=== PATIENT | female | born 1970 | race Caucasian/White ===

== ENCOUNTER 2016-04-08 08:16 | Emergency (ER) | payer OTHER ==
[~2016-04-08] VITALS: Ht 162.6 cm; Wt 104.3 kg
[~2016-04-08 08:16] MED LIST: ALKASELTZER; CALCIUM CARBON600 M4 PO; FOLATE1 MG PO; MOTRIN800 MG PO; PRENATAL VITAMI1 T10 PO; TYLENOL; VICODIN 5/500 M1 TAB PO
--- NOTE | 2016-04-08 08:22 | NUR ---
Patient ambulated to bed 06.
--- NOTE | 2016-04-08 08:22 | NUR ---
Daylin lynch in [facility] - 04/08/16 at 0839 by STEVE Patient ambulated to bed 05.
--- NOTE | 2016-04-08 08:28 | NUR ---
Dr. Hyatt evaluating patient at bedside.
[2016-04-08 08:30] VITALS: BP 133/93
--- NOTE | 2016-04-08 08:34 | NUR ---
LAB at bedside.
--- NOTE | 2016-04-08 08:39 | NUR ---
PATIENT PRESENTS TO ED WITH HEAVY VAGINAL BLEEDING STARTING YESTERDAY, ONE PAD AN HOUR, STATES SHE HAS NUMEROUS CLOTS, DENIES N/V/D; SKIN IS PINK/WARM/DRY; AAOX4 WITH EVEN AND STEADY GAIT; LUNGS CLEAR BL; HR EVEN AND REGULAR; PT DENIES ANY FEVER, CP, SOB, OR COUGH AT THIS TIME; PATIENT STATES PAIN OF 6/10 AT THIS TIME; VSS; PATIENT POSITIONED FOR COMFORT; HOB ELEVATED; BEDRAILS UP X2; BED DOWN. ER MD MADE AWARE OF PT STATUS.
--- NOTE | 2016-04-08 08:45 | NUR ---
Daylin lynch in [facility] - 04/08/16 at 0902 by STEVE US at bedside.
[2016-04-08 10:21] VITALS: BP 122/82
--- NOTE | 2016-04-08 10:21 | NUR ---
Patient discharged with v/s stable. Written and verbal after care instructions given and explained. Patient verbalized understanding. Ambulatory with steady gait. All questions addressed prior to discharge. Advised to follow up with PMD.
== END 2016-04-08 10:21 | disposition home or self-care (01) ==
LOC: MED 08:21
DX: N93.9 Abnormal uterine and vaginal bleeding, unspecified (principal)
CPT/HCPCS: 36415; 76830; 76856; 81001; 81025; 84702; 85025; 85610; 85730; 87086; 99285; Q0092